=== PATIENT | male | born 1945 | race Caucasian/White ===

== ENCOUNTER 2019-01-05 17:51 | Inpatient (IN) | payer MEDICARE, MEDICAID ==
[~2019-01-05] VITALS: Ht 177.8 cm; Wt 72.6 kg
[2019-01-05 20:45] VITALS: BP 128/76
--- NOTE | 2019-01-05 21:00 | NUR ---
RECEIVE PT AT [address] [facility] WITH 2 EMT ADMIT TO MS FLOOR , PT POOR HISTORIAN, PT A/O X 3 WITH PERIOD OF FORGETFULNESS, DENIES CHEST PAIN, AFEBRILE. NO COMPLAIN OF PAIN, NON TOXIC APPEARANCE, SKIN INTACT. G-TUBE NOTED LLQ SITE CLEAN AND DRY AND CLAMPED PER PT HE STILL EATS AND DOESN'T KNOW WHAT HE'S FEEDING PER NEPHEW LUIS AND RECORD PT UNABLE TO EAT BY MOUTH A YEAR AGO DX UNCLEAR, G-TUBE WAS PLACED LAST 2017 AT [facility] PRES NEPHEW GIVES PUREED DIET AND SOME TROUGH HIS G-TUBE. NUTRITION AND ST CONSULT INITIATED, HOSPITALIST AWARE. SAFETY MEASURES IN PLACE PT KEPT CLEAN AND DRY. WILL CONT TO MTR. SEIZURE PRECAUTION.
--- NOTE | 2019-01-05 21:40 | NUR ---
PAGED HOSPITALIST FOR ADMITTING ORDERS AWAITING CALL BACK
--- NOTE | 2019-01-05 21:50 | NUR ---
CALLED BACK HOSPITALSIT PER MELITON OLVERA HE WILL SEE THE PT
--- NOTE | 2019-01-05 21:54 | NUR ---
SPOKE TO THE CHRISTIANOSIN LUIS PERSON TO NOTIFY MADE AWARE PT IS HERE AT [place], NO HOME MEDICATION LIST Addendum: 01/05/19 at 2157 by DAR GUTIERREZ RN PER LUIS AND PT DOESN'T KNOW WHAT FEEDING HE IS ON AND WHAT RATE BUT PT CAN ABLE TO DRINK AND EAT LUIS STATED GT TUBE WAS PLACED A YEAR AGO.
[2019-01-05 22:00] VITALS: BP 128/76
[2019-01-05] MEDS ORDERED: MIRT15TA7 PO (22:03)
[2019-01-05] MEDS ORDERED: DIAZ5TAB4 PO (22:03)
[2019-01-05] MEDS ORDERED: CEFTRIAXONE 1 G in IV D5W 50 ML IV SCH (23:00)
[2019-01-05] MEDS ORDERED: LORAZEPAM INJ 2 MG/ML VIAL IV PRN (23:00)
[2019-01-05] MEDS ORDERED: MAG HYDROX/AL HYDROX/SIMETH 30 ML UDC PO PRN (23:00)
[2019-01-05] MEDS ORDERED: ACETAMINOPHEN 325 MG TABLET PO PRN (23:00)
[2019-01-05] MEDS ORDERED: Z GUARD REMEDY 2 OZ OINT TP PRN (23:00)
[2019-01-05] MEDS ORDERED: MAGNESIUM HYDROXIDE 30 ML UDC PO PRN (23:00)
[2019-01-05] MEDS ORDERED: METRONIDAZOLE 500MG/ NS 100ML 100 ML IV ONE (23:08)
[2019-01-05] MEDS: IV NS 0.9% 1,000 ML IV PRN (23:15)
[2019-01-05] MEDS: METRONIDAZOLE 500MG/ NS 100ML 500 MG in PREMIX 1 EA IV SCH (23:16)
[2019-01-06] MEDS ORDERED: METRONIDAZOLE 500MG/ NS 100ML 100 ML IV ONE (05:14)
[2019-01-06] MEDS: METRONIDAZOLE 500MG/ NS 100ML 500 MG in PREMIX 1 EA IV SCH ×4 (05:16→23:21)
[2019-01-06 06:20] LABS: BASOPHILS % (AUTO) 0.4 % (0.0-2.0); HEMATOCRIT 36 % (39-51); LYMPHOCYTES # (AUTO) 1.2 /CMM (0.8-4.8); LYMPHOCYTES % (AUTO) 11.5 % (20.0-44.0); MEAN CORPUSCULAR HGB CONC 34 g/dl (31.0-36.0); MEAN CORPUSCULAR VOLUME 93 fL (80-96); MONOCYTES # (AUTO) 1.1 /CMM (0.1-1.30); MONOCYTES % (AUTO) 11.2 % (2.0-12.0); NEUTROPHILS # (AUTO) 7.8 /CMM (1.8-8.9); NEUTROPHILS % (AUTO) 76.9 % (43.0-81.0); PLATELET COUNT (AUTO) 242 /CMM (150-450); RED BLOOD CELL COUNT(AUTO) 3.84 MIL/uL (4.5-6.0); WHITE BLOOD COUNT (AUTO) 10.2 K/uL (4.3-11.0)
[2019-01-06 06:23] LABS: ALANINE AMINOTRANSFERASE 24 U/L (12-78); ALKALINE PHOSPHATASE 56 U/L (46-116); ASPARTATE AMINOTRANSFERASE 27 U/L (15-37); BILIRUBIN,TOTAL 0.6 mg/dL (0.2-1.0); CALCIUM, SERUM 8.6 mg/dL (8.5-10.1); CARBON DIOXIDE 25 mmol/L (21-32); CHLORIDE 108 mmol/L (98-107); CREATININE 0.8 mg/dL (0.6-1.3); GLUCOSE 101 mg/dL (74-106); POTASSIUM 3.5 mmol/L (3.5-5.1); SODIUM SERUM 141 mmol/L (136-145); TOTAL PROTEIN, SERUM 6.5 g/dL (6.4-8.2); UREA NITROGEN, BLOOD 8 mg/dL (7-18)
--- NOTE | 2019-01-06 06:25 | NUR ---
MS RN ASLEEP AND EASILY AWAKEN, NO NAUSEA AND VOMITING, RESPIRATION EVEN AND UNLABORED, STABLE AND NOT IN DISTRESS, AM CARE RENDERED, AFEBRILE. NEEDS ATTENDED AND ANTICIPATED, NO SEIZURE ACTIVITY. KEPT CLEAN AND DRY AND COMFORTABLE. NO EPISODE OF DIARRHEA THROUGHOUT THE SHIFT. FC INTACT DRAINING CLEAR YELLOW VIA GRAVITY. SAFETY MEASURES AT ALL TIMES. ENDORSE TO THE NEXT SHIFT.
[2019-01-06 06:36] LABS: CHOLESTEROL 139 mg/dL (<200); HDL CHOLESTEROL 55 mg/dL (40-60); LDL 78 mg/dL (0-99); THYROID STIMULATING HORMONE 0.248 uIU/mL (0.358-3.74); TRIGLYCERIDES 71 mg/dL (30-150)
--- NOTE | 2019-01-06 07:50 | NUR ---
MS RN OPENING NOTES RECEIVED PT IN BED, INTERMITTENTLY DOZING OFF. ON 2LPM O2 VIA NC, WITH NO ACUTE RESPIRATORY DISTRESS NOTED. PT DENIES ANY PAIN AT THIS MOMENT. PT ALSO DENIES ANY CONCERNS OR QUESTIONS AT THIS MOMENT. PIV TO R WRIST G20, FLUSHED WITH NS, INTACT AND OPERATIONAL. IVF NS AT 75 ML/HR TO LAC G16, INTACT AND FLUID INFUSING WELL. PT KEPT COMFORTABLE. PT'S BED IN LOWEST, LOCKED POSITION WITH SR X2. CALL LIGHT KEPT WITHIN REACH. WILL CONTINUE PLAN OF CARE.
[2019-01-06 08:00] VITALS: BP 123/77
[2019-01-06] MEDS: DIAZEPAM 5 MG TABLET PO SCH ×2 (08:49→17:27)
[2019-01-06] MEDS: CEFTRIAXONE 1 G in IV D5W 50 ML IV SCH (08:50)
[2019-01-06] MEDS: PANTOPRAZOLE 40 MG VIAL IV SCH (08:50)
--- NOTE | 2019-01-06 15:45 | NUR ---
RN NOTES MEDICAL SUPERVISOR PRESENT BEDSIDE, CURRENTLY DOING CXRAY FOR PT.
[2019-01-06 16:00] VITALS: BP 128/80
--- NOTE | 2019-01-06 16:03 | NUR ---
RN NOTES PT EVAL WAS DONE. PHYSICAL THERAPIST STATED PT NOT SAFETY TO WALK WITH ASSISTIVE DEVICE ALONE. MAY NEED GAIT BELT AND MAX ASSIST. WILL ENDORSE TO NEXT SHIFT NURSE.
[2019-01-06] MEDS: MIRTAZAPINE 15 MG TABLET PO SCH (17:27)
[2019-01-06] MEDS: IV NS 0.9% 1,000 ML IV PRN (17:35)
--- NOTE | 2019-01-06 17:47 | NUR ---
RN NOTES PT'S NEPHEW/LUIS PRESENT BEDSIDE. AWARE OF PT'S CONDITION. CANE WILL BE BROUGHT BY THEM TOMORROW. LUIS VERIFIED PT CAN WALK WITH A CANE BEFORE AND HAS GT FEEDING, BUT NOT ABLE TO PROVIDE DETAILED INFORMATION AND ALSO, PT CAN EAT BY MOUTH WITH PUREE FOOD. STILL AWAITING FOR ST/SWALLOW EVAL. WILL CONTINUE TO MONITOR.
--- NOTE | 2019-01-06 18:27 | NUR ---
MS RN CLOSING NOTES PT REMAINS IN BED, INTERMITTENTLY DOZING OFF. ON 2LPM O2 VIA NC, WITH NO ACUTE RESPIRATORY DISTRESS NOTED. PT DENIES ANY PAIN AT THIS MOMENT. PT HAS EPISODES OF SPITTING CLEAR SALIVA, BASIN PRESENT BEDSIDE. SPOKE TO MD MARTINEZ THIS MORNING AROUND 11AM, NO NEW ORDERS FOR NOW. CXRAY WAS DONE. PT DENIES FEELING NAUSEATED. PIV TO LAC G16, FLUSHED WITH NS, INTACT AND OPERATIONAL. IVF NS AT 75 ML/HR TO RIGHT WRIST G20, INTACT AND FLUID INFUSING WELL. FC IN PLACE INTACT AND WITH CLEAR YELLOWISH URINE OUTPUT OF 350ML. ALL NEEDS AD CARE PROVIDED. PT KEPT COMFORTABLE. PT'S BED IN LOWEST, LOCKED POSITION WITH SR X2. CALL LIGHT KEPT WITHIN REACH. WILL ENDORSE TO NIGHT NURSE FOR SILKE.
--- NOTE | 2019-01-06 19:30 | NUR ---
RN NOTES RECEIVED PT. AWAKE ON BED, A/OX2, CONFUSED, LEGALLY BLIND, G-TUBE CLAMPED, RIGHT HAND IV GOT INFILTRATED, SWOLLEN, OFF LOAD, F/C DRAINING TEA COLORED DRAIN, HE HAS ANOTHER LINE ON LEFT AC, CALL LIGHT WITHIN REACH, SIDERAILSUPX3, CONTINUE TO MONITOR
[2019-01-06 20:10] VITALS: BP 128/73
[2019-01-07] MEDS: METRONIDAZOLE 500MG/ NS 100ML 500 MG in PREMIX 1 EA IV SCH (05:47)
--- NOTE | 2019-01-07 06:49 | NUR ---
RN NOTES AWAKE,MORNING CARE RENDERED, DENIES PAIN ,NO SOB, SIDERAILSUPX2, PT. NEEDS ATTENDED
[2019-01-07 07:31] LABS: BASOPHILS # (AUTO) 0.1 /CMM (0.0-0.2); BASOPHILS % (AUTO) 0.7 % (0.0-2.0); EOSINOPHILS % (AUTO) 0.2 % (0.0-6.0); HEMATOCRIT 36 % (39-51); LYMPHOCYTES # (AUTO) 1.2 /CMM (0.8-4.8); LYMPHOCYTES % (AUTO) 12.2 % (20.0-44.0); MEAN CORPUSCULAR HGB CONC 33 g/dl (31.0-36.0); MEAN CORPUSCULAR VOLUME 92 fL (80-96); MONOCYTES # (AUTO) 1.1 /CMM (0.1-1.30); MONOCYTES % (AUTO) 11.1 % (2.0-12.0); NEUTROPHILS # (AUTO) 7.7 /CMM (1.8-8.9); NEUTROPHILS % (AUTO) 75.8 % (43.0-81.0); PLATELET COUNT (AUTO) 236 /CMM (150-450); RED BLOOD CELL COUNT(AUTO) 3.91 MIL/uL (4.5-6.0); WHITE BLOOD COUNT (AUTO) 10.2 K/uL (4.3-11.0)
[2019-01-07 07:40] LABS: CALCIUM, SERUM 8.6 mg/dL (8.5-10.1); CARBON DIOXIDE 24 mmol/L (21-32); CHLORIDE 106 mmol/L (98-107); CREATININE 0.9 mg/dL (0.6-1.3); GLUCOSE 107 mg/dL (74-106); MAGNESIUM 1.7 mg/dL (1.8-2.4); PHOSPHORUS 2.4 mg/dL (2.5-4.9); POTASSIUM 3.4 mmol/L (3.5-5.1); SODIUM SERUM 141 mmol/L (136-145); UREA NITROGEN, BLOOD 6 mg/dL (7-18)
[2019-01-07 08:00] VITALS: BP_SYST 140; BP_SYST 149; BP_DIAS 81
--- NOTE | 2019-01-07 08:00 | NUR ---
RN NOTES RECEIVED PATIENT IN THE BED A/O X3, ON O2-2L NC. PATIENT HAS NO ACUTE RESPIRATORY DISTRESS, PATIENT LEGALLY BLIND, PATIENT TOTAL CARE, ON G-TUBE INTACT, RESIDUAL AND PLACEMENT CHECKED. PATIENT HEAD OF BED KEEP ELEVATED FOR ASPIRATION PRECAUTION. PER PATIENT FAMILY PATIENT CAN EAT AND TOLERATE FOOD WELL BY MOUTH. DURING THE TIME OF FEEDING PATIENT STARTED TO VOMIT, STOP FEEDING. NOTIFIED Dr MATOS AND GET ORDER SE EVALUATION. PER SE PATIENT ASPIRATION PRECAUTION. PATIENT NPO NOW ,AND WILL START JAVITY 1/2 FEEDING TOLERATED. CALL LIGHT WITHIN TO REACH. SAFETY PRECAUTION MAINTAINED ALL THE TIME. CALL LIGHT WITHIN TO REACH. ASSIST PATIENT TURN AND REPOSTION Q 2 HR.
[2019-01-07] MEDS ORDERED: PHENAZOPYRIDINE HCL 200 MG TABLET PO PRN (10:30)
[2019-01-07] MEDS: CEFTRIAXONE 1 G in IV D5W 50 ML IV SCH (10:31)
[2019-01-07] MEDS: DIAZEPAM 5 MG TABLET PO SCH ×2 (10:31→16:53)
[2019-01-07] MEDS: PANTOPRAZOLE 40 MG VIAL IV SCH (10:31)
[2019-01-07] MEDS ORDERED: POTASSIUM CHLORIDE 20 MEQ TAB.PRT.SR PO SCH (11:00)
--- NOTE | 2019-01-07 12:00 | NUR ---
RN NOTES PATIENT DELUSIONAL AND HALLUCINATING, KEEP CALLING TENISHA NAME FOR HELP AND PRAYING HE IS GOING TO SEE TENISHA. SIDE RAILS UP, F/C DRAIN LIGHT YELLOW OUTPUT, PATIENT INCONTINENT, SCHEDULED MEDICATION ADMINISTERED, ASSIST TURN AND REPOSTION Q 2 HR. CONTINUED MONITORING. ALSO INFUSING MAGNESIUM 100 ML/HR LEFT AC AREA INTACT.
[2019-01-07] MEDS: Magnesium 1GM/D5W 100ML PREMIX 100 ML IV SCH ×2 (12:51→14:06)
[2019-01-07] MEDS ORDERED: POTASSIUM CHLORIDE 20 MEQ TAB.PRT.SR PO ONE (13:00)
[2019-01-07] MEDS: JEVITY 1.2 CAL 1,000 ML BOTTLE GT PRN (13:25)
[2019-01-07] MEDS: PROSOURCE / PROSTAT (PYXIS) 30 ML UDC GT SCH (13:26)
--- NOTE | 2019-01-07 13:30 | NUR ---
RN NOTES STARTED JEVITY 1.2 AT 30ML/HR AND WILL INCREASE GRADUALLY TO 60 ML/HR G-TUBE FEEDING AT THIS TIME. ALLS MEDICATION ADMINISTERED VIA G-TUBE. PATIENT TOLERATED WELL FEEDING. PATIENT STABEL, CALL LIGHT WITHIN TO REACH. CONTINUED MONITORING.
[2019-01-07 16:00] VITALS: BP 124/80
[2019-01-07] MEDS ORDERED: NEUTRA PHOS 1 POWD.PACKET NG ONE (16:00)
[2019-01-07] MEDS: MIRTAZAPINE 15 MG TABLET PO SCH (17:03)
[2019-01-07] MEDS: IV NS 0.9% 1,000 ML IV PRN (17:06)
[2019-01-07] MEDS: HYDROCODONE/APAP 5/325MG 1 EACH TABLET PO PRN (18:17)
--- NOTE | 2019-01-07 18:17 | NUR ---
RN NOTES ADMINISTERED NARCO 5/325 MG GT PRNVIT G-TUBE FOR GENERALIZED PAIN 03/27 PER PATIENT REQUEST, V/S STABLE BP-124/80, P-80, CONTINUED MONITORING.
--- NOTE | 2019-01-07 18:40 | NUR ---
RN NOTES MEDICATION WERE ADMINISTERED FOR PAIN EFFECTIVE, REPOSTION USING PILLOWS, G-TUBE INFUSING WELL, ALSO INFUSING NS AT 75 ML/ HR IN LEFT AC AREA INTACT. CALL LIGHT WITHIN TO REACH, SAFETY PRECAUTION MAINTAINED ALL THE TIME. ENDORSED ONCOMING NURSE FOR PLAN OF CARE.
--- NOTE | 2019-01-07 19:51 | NUR ---
RN MS OPENING NOTES RECEIVED PT IN BED, AWAKE ALERT ORIENTESX2, BREATHING EVEN AND UNLABORED ON O2 2L. NO COMPLAINT OF PAIN OR DISCOMFORT AT THE MOMENT. IV ACCESS ON THE LAC #18G WTH NS@75ML/HR. GTUBE IN PLACE WITH JEVITY @30ML/HR. NO RESIDUAL. BED IN LOWEST LOCKED POSITION, REPOSITIONED FOR COMFORT. CALL LIGHT WITHIN REACH AT ALL TIMES, WILL CONTINUE TO MONITOR FREQUENTLY
[2019-01-07 20:00] VITALS: BP 130/89
[2019-01-08] MEDS: HYDROCODONE/APAP 5/325MG 1 EACH TABLET PO PRN ×3 (00:27→19:54)
[2019-01-08] MEDS: IV NS 0.9% 1,000 ML IV PRN ×2 (05:43→17:23)
--- NOTE | 2019-01-08 06:15 | NUR ---
RN MS CLOSING NOTES PT REMAINS IN BED, AWAKE ALERT ORIENTESX2, BREATHING EVEN AND UNLABORED ON O2 2L. NO COMPLAINT OF PAIN OR DISCOMFORT AT THE MOMENT. IV ACCESS ON THE LAC #18G WTH NS@75ML/HR. GTUBE IN PLACE WITH JEVITY @50ML/HR. 5MLOF RESIDUAL. BED IN LOWEST LOCKED POSITION, REPOSITIONED FOR COMFORT. CALL LIGHT WITHIN REACH AT ALL TIMES, WILL ENDORSE TO DAY NURSE FOR SILKE
--- NOTE | 2019-01-08 07:30 | NUR ---
OPENING MEDSUR RN NOTE RECEIVED PT FROM NIGHT NURSE. PT IS RESTING IN BED WITH EYES CLOSED. PT IS IN 3L NASAL CANNULA. NO SOB. NO PAIN. CALL LIGHT IS IN PT HAND. BED LIGHT IN LOW POSITION.
[2019-01-08 07:37] LABS: BASOPHILS % (AUTO) 0.5 % (0.0-2.0); EOSINOPHILS % (AUTO) 0.6 % (0.0-6.0); HEMATOCRIT 34 % (39-51); HEMOGLOBIN 11.6 g/dL (13.5-17.5); LYMPHOCYTES % (AUTO) 10.2 % (20.0-44.0); MEAN CORPUSCULAR HGB CONC 34 g/dl (31.0-36.0); MEAN CORPUSCULAR VOLUME 91 fL (80-96); MONOCYTES # (AUTO) 1.2 /CMM (0.1-1.30); MONOCYTES % (AUTO) 12.2 % (2.0-12.0); NEUTROPHILS # (AUTO) 7.5 /CMM (1.8-8.9); NEUTROPHILS % (AUTO) 76.5 % (43.0-81.0); PLATELET COUNT (AUTO) 224 /CMM (150-450); RED BLOOD CELL COUNT(AUTO) 3.74 MIL/uL (4.5-6.0); WHITE BLOOD COUNT (AUTO) 9.7 K/uL (4.3-11.0)
[2019-01-08 08:00] VITALS: BP 148/93
[2019-01-08 08:02] LABS: CALCIUM, SERUM 8.3 mg/dL (8.5-10.1); CARBON DIOXIDE 25 mmol/L (21-32); CHLORIDE 107 mmol/L (98-107); CREATININE 0.8 mg/dL (0.6-1.3); GLUCOSE 102 mg/dL (74-106); MAGNESIUM 1.9 mg/dL (1.8-2.4); PHOSPHORUS 2.9 mg/dL (2.5-4.9); POTASSIUM 3.3 mmol/L (3.5-5.1); SODIUM SERUM 141 mmol/L (136-145); UREA NITROGEN, BLOOD 7 mg/dL (7-18)
[2019-01-08] MEDS: DIAZEPAM 5 MG TABLET PO SCH ×2 (09:33→17:02)
[2019-01-08] MEDS: PANTOPRAZOLE 40 MG VIAL IV SCH (09:33)
[2019-01-08] MEDS ORDERED: POTASSIUM CHLORIDE 20 MEQ TAB.PRT.SR PO SCH (10:00)
[2019-01-08] MEDS: ONDANSETRON HCL/PF 4 MG/2 ML VIAL IVP PRN (10:46)
--- NOTE | 2019-01-08 11:28 | NUR ---
ROGER RN NOTES PT WAS COMPLAINING OF PAIN AT 1026 AM. PT STATES "I HAVE PAIN IN MY UPPER HEAD AND LOWER BACK". PAIN MEDICATION HAS BEEN GIVEN. MANAGE PAIN LEVEL BY MEDICATION AND REPOSITIONING. PT IS FEELING RELIEVED AT 1126.
--- NOTE | 2019-01-08 11:32 | NUR ---
RN MEDR NOTES DR. NUNEZ CAME TO SEE PT. PATIENT VOMIT [address] NUNEZ TOLD TO STOP THE TUBE FEEDING. NAUSEA MEDICATION HAS BEEN GIVEN. PT STATES "I FEEL BETTER" AND IS WATCHING TV. CALL LIGHT IS WITHIN REACH. BED IN LOW POSITION.
[2019-01-08] MEDS: PROSOURCE / PROSTAT (PYXIS) 30 ML UDC GT SCH (14:55)
--- NOTE | 2019-01-08 15:36 | NUR ---
MEDSURRaudel RN NOTES PT IS RESTING IN BED WITH EYES CLOSED. PT IS IN 2L NASAL CANNULA. NO SOB. IV FLUID IS RUNNING 125 ML/HR PER MD ORDER.. CALL LIGHT IS WITHIN REACH. BED AT LOW POSITION.
--- NOTE | 2019-01-08 15:46 | NUR ---
RN MEDSURG NOTES SEIZURE PRECAUTION IS MAINTAINED.
[2019-01-08 16:00] VITALS: BP 138/90
[2019-01-08] MEDS: MIRTAZAPINE 15 MG TABLET PO SCH (17:02)
--- NOTE | 2019-01-08 18:44 | NUR ---
RN ROGER NOTES PT IS RESTING IN BED. MEDICATIONS HAS BEEN GIVEN. NO EPISODE OF NAUSEA AND VOMITING. NO PAIN. PT IS STILL NPO UNTIL FOLLOW UP IN THE MORNING. NO SOB. FLUID IS RUNNING. SPOKE WITH PATIENT'S NEPHEW REGARDING THE CONDITION AND PLAN OF CARE. PT'S NEPHEW VERBALIZE UNDERSTANDING. SEIZURE PRECAUTION IS MAINTAINED. CALL LIGHT IS WITHIN REACH AND BED AT LOW POSITION.
--- NOTE | 2019-01-08 19:00 | NUR ---
RN MS OPENING NOTES RECEIVED PATIENT IN BED AWAKE ALERT AND ORIENTED X2, ON 2 L VIA NC RESPIRATIONS EVEN AND UNLABORED WITH EQUAL RISE AND FALL OF CHEST, AT THIS TIME DENIES ANY PAIN OR DISCOMFORT, HEAD ELEVATED FOR ASPIRATION PRECAUTIONS, FEEDING HELD AT THIS TIME PER MD ORDER. WOLFE CATHETER INTACT AND DRAINING WELL, LEFT AC #18 G INTACT AND PATENT, NO REDNESS NO INFILTRATION PRESENT, IVF RUNNING ORDERED, ORIENTED TO STAFF AND CALL LIGHT AND KEPT WITHIN REACH, LOW BED AND LOCKED, ALL NEEDS ATTENDED AT THIS TIME, WILL CONTINUE TO MONITOR AND ATTEND TO NEEDS PATIENT REPOSITIONED.
--- NOTE | 2019-01-08 19:54 | NUR ---
RN MS NOTES PATIENT COMPLAINT OF HEADACHE 04/27 ASKING FOR PAIN MEDICATION NORCO OFFERED, PATIENT AGREED. VS WNL 130/83,82,20,97.9,99% 2 L VIA NC NORCO PRN GIVEN WILL CONTINUE TO MONITOR FOR EFFECTIVESS, GTUBE FLUSHED, NO RESIDUALS PRESENT.
[2019-01-08 20:00] VITALS: BP 130/83
[2019-01-09] MEDS: IV NS 0.9% 1,000 ML IV PRN ×3 (01:28→20:40)
--- NOTE | 2019-01-09 07:15 | NUR ---
RN MS CLOSING NOTES PATIENT IN BED AWAKE ALERT AND ORIENTED X2, ON 2 L VIA NC RESPIRATIONS EVEN AND UNLABORED WITH EQUAL RISE AND FALL OF CHEST, AT THIS TIME DENIES ANY PAIN OR DISCOMFORT, HEAD ELEVATED FOR ASPIRATION PRECAUTIONS, FEEDING HELD AT THIS TIME PER MD ORDER. WOLFE CATHETER INTACT AND DRAINING WELL, LEFT AC #18 G INTACT AND PATENT, NO REDNESS NO INFILTRATION PRESENT, IVF RUNNING ORDERED, CALL LIGHT KEPT WITHIN REACH, LOW BED AND LOCKED, ALL NEEDS ATTENDED AT THIS TIME, WILL CONTINUE TO MONITOR AND ENDORSE TO NEXT SHIFT PATIENT REPOSITIONED, HEELS OFFLOADED NO CHANGE THROUGHOUT NIGHT.
[2019-01-09 07:17] LABS: BASOPHILS % (AUTO) 0.5 % (0.0-2.0); HEMATOCRIT 35 % (39-51); HEMOGLOBIN 11.7 g/dL (13.5-17.5); LYMPHOCYTES # (AUTO) 0.9 /CMM (0.8-4.8); LYMPHOCYTES % (AUTO) 9.1 % (20.0-44.0); MEAN CORPUSCULAR HGB CONC 34 g/dl (31.0-36.0); MEAN CORPUSCULAR VOLUME 93 fL (80-96); MONOCYTES % (AUTO) 10.7 % (2.0-12.0); NEUTROPHILS # (AUTO) 7.7 /CMM (1.8-8.9); NEUTROPHILS % (AUTO) 78.7 % (43.0-81.0); PLATELET COUNT (AUTO) 215 /CMM (150-450); RED BLOOD CELL COUNT(AUTO) 3.71 MIL/uL (4.5-6.0); WHITE BLOOD COUNT (AUTO) 9.7 K/uL (4.3-11.0)
--- NOTE | 2019-01-09 07:30 | NUR ---
OPENING RN MEDSURG NOTES RECEIVED PT IS AWAKE AND ALERTX2. PT RESPIRATION IS EQUAL, CLEAR AND UNLABORED. NO SOB. PT STILL IN 2L NC. WOLFE CATHERER IS PATENT, INTACT, AND DRAINING. DENIES ANY PAIN OR DISCOMFORT. PT STILL NPO AT THIS TIME. WILL CONTINUE TO MONITOR AND ASSIST WITH ALL PT NEEDS. CALL LIGHT IS WITHIN REACH AND BED AT LOW POSITION.
[2019-01-09 07:36] LABS: CALCIUM, SERUM 8.4 mg/dL (8.5-10.1); CARBON DIOXIDE 26 mmol/L (21-32); CHLORIDE 107 mmol/L (98-107); CREATININE 0.8 mg/dL (0.6-1.3); GLUCOSE 86 mg/dL (74-106); MAGNESIUM 1.7 mg/dL (1.8-2.4); PHOSPHORUS 5.1 mg/dL (2.5-4.9); POTASSIUM 3.5 mmol/L (3.5-5.1); SODIUM SERUM 142 mmol/L (136-145); UREA NITROGEN, BLOOD 6 mg/dL (7-18)
[2019-01-09 08:00] VITALS: BP 143/90
[2019-01-09] MEDS: DIAZEPAM 5 MG TABLET PO SCH ×2 (09:11→17:49)
[2019-01-09] MEDS: PROSOURCE / PROSTAT (PYXIS) 30 ML UDC GT SCH (09:12)
[2019-01-09] MEDS: PANTOPRAZOLE 40 MG VIAL IV SCH (09:12)
--- NOTE | 2019-01-09 09:50 | NUR ---
RN MEDSURG NOTES SPOKE WITH DR. NUNEZ ABOUT PT CRITICAL LAB. DR. NUNEZ ORDERED MAGNESIUM TO IMPROVE PT MAGNESIUM LEVEL. DR. NUNEZ MENTIONED SHE WILL TALK TO DR. MICHEL ABOUT PT'S TUBE FEEDING. PT'S RESIDUAL FROM THE TUBE FEEDING WAS 15 ML.
--- NOTE | 2019-01-09 10:00 | NUR ---
ROGER RN NOTES PT VOMITED [address] NUNEZ AND THE CHARGE NURSE HAS BEEN INFORMED AND AWARE OF THE PT'S CONDITION. PRN MEDICATION (ZOFRAN) HAS BEEN GIVEN. ASSITED THE PT. REPOSITION THE PATIENT. BED AT LOW POSITION. CALL LIGHT IS WITHIN REACH. WILL CONTINUE TO MONITOR PT'S CONDITION.
[2019-01-09] MEDS: Magnesium 1GM/D5W 100ML PREMIX 100 ML IV SCH ×2 (10:02→13:40)
[2019-01-09] MEDS: ONDANSETRON HCL/PF 4 MG/2 ML VIAL IVP PRN (10:17)
--- NOTE | 2019-01-09 11:06 | NUR ---
RN MEDSUR NOTES DR. NUNEZ DISCUSSED WITH THE PT'S NEPHEW LUIS ABOUT PT'S CONDITION. PT'S NEPHEW UNDERSTAND ABOUT PT'S CONDITION AND PLAN OF CARE. PT IS RELAX IN BED. NAUSEA MEDICATION HAS BEEN GIVEN. NO MORE VOMIT AND NAUSEA AT THIS TIME. BED AT LOW POSITION AND CALL LIGHT IS WITHIN REACH.
--- NOTE | 2019-01-09 14:36 | NUR ---
MEDSURG RN NOTES PT IS RELAXING IN BED LISTENING TO THE TV. IV SITE IS PATENT AND STILL INFUSING WELL. NO PAIN. NO NAUSEA AND VOMITING AT THIS TIME. RESPIRATION IS EQUAL, CLEAR AND UNLABORED. SEIZURE PRECAUTION IS MAINTAINED. CALL LIGHT IS WITHIN REACH AND BED AT LOW POSITION. WILL CONTINUE TO MONITOR AND ASSIST WITH NEEDS.
[2019-01-09 16:00] VITALS: BP 135/88
[2019-01-09] MEDS: MIRTAZAPINE 15 MG TABLET PO SCH (17:49)
--- NOTE | 2019-01-09 18:30 | NUR ---
ROGER RN CLOSING NOTES PT IS RESTING IN BED LISTENING TO TV. PT IS IN 2L NC. RESPIRATION IS EQUAL, CLEAR AND UNLABORED. IV IS INTACT, PATENT AND INFUSING WELL. WOLFE CATHERER INTACT AND PATENT. NO PAIN PRESENT. NO MORE VOMITS. ALL MEDICATIONS HAS BEEN GIVEN. PT DENIES PAIN OR DISCOMFORT AT THIS TIME. CALL LIGHT WITHIN REACH. BED AT LOW POSITION.
[2019-01-09 20:00] VITALS: BP 149/79
--- NOTE | 2019-01-09 20:00 | NUR ---
MS/RN OPENING NOTES PATIENT IN BED, ALERT, ORIENTED X3, ABLE TO VERBALIZE NEEDS, REPORTED PAIN OF 8/10, HAD MEDICATION FOR PAIN PREVIOUS SHIFT , WILL MONITOR. RESPIRATIONS EVEN AND UNLABORED, CALL LIGHTS WITHIN REACH, BED LOCKED CALL LIGHTS WITHIN REACH, PATIENT LEGALLY BLIND AND REQUIRE ASSISTANCE. BED LOCKED CALL LIGHTS WITHIN REACH.
--- NOTE | 2019-01-10 06:43 | NUR ---
327-1 MS/RN NOTES PATIENT ABLE TO SLEEP DURING THE NIGHT, RESPIRATIONS EVEN AND UNLABORED, SKIN WARM TO TOUCH, MONITORED FOR NAUSEAM VOMITING AND DIRRHEA, ON NPOM GTUBE CLAMP PER GI, AWAITING FOR GI COMSULT. WILL MONITOR. BED LOCKED, CALL LIGHTS WITHIN REACH, WILL MONITOR.
--- NOTE | 2019-01-10 06:44 | NUR ---
MS/RN NOTES PATIENT ABLE TO SLEEP INTERMITENTL, RESPIRATIONS EVEN AND UNLABORED WITH CONGESTION, RT WAS CALLED FOR BREATHING TX, MONITORD FOR ANY CHANGES. BED LOCKED.CALL LIGHTS WITHIN REACH. WILL MONITOR.
--- NOTE | 2019-01-10 07:54 | NUR ---
MS RN OPENING NOTES RECEIVED PT RESTING IN BED, AWAKE. A/O X2-3. PT ON O2 AT 2LPM VIA NC, WITH NO ACUTE RESPIRATORY DISTRESS NOTED. PT DENIES PAIN. PT DENIES ANY QUESTIONS OR CONCERNS AT THIS MOMENT. IVF NS AT 125ML/HR TO RFA G22, INTACT AND INFUSING WELL. PIV LAC G18 SL, FLUSHED WITH NS, INTACT AND OPERATIONAL. FC IN PLACE WITH YELLOWISH URINE IN THE BAG, OUTPUT OF 100ML. PT KEPT COMFORTABLE. PT'S BED KEPT IN LOWEST, LOCKED, POSITION WITH SRX2. CALL LIGHT WITHIN REACH. WILL CONTINUE PLAN OF CARE.
[2019-01-10 08:00] VITALS: BP 147/81
[2019-01-10] MEDS: DIAZEPAM 5 MG TABLET PO SCH ×2 (08:17→17:22)
[2019-01-10] MEDS: PANTOPRAZOLE 40 MG VIAL IV SCH (08:17)
[2019-01-10] MEDS: IV NS 0.9% 1,000 ML IV PRN ×2 (08:18→18:01)
[2019-01-10 08:20] LABS: BASOPHILS % (AUTO) 0.3 % (0.0-2.0); HEMATOCRIT 35 % (39-51); HEMOGLOBIN 11.8 g/dL (13.5-17.5); LYMPHOCYTES # (AUTO) 0.9 /CMM (0.8-4.8); MEAN CORPUSCULAR HGB CONC 34 g/dl (31.0-36.0); MEAN CORPUSCULAR VOLUME 93 fL (80-96); MONOCYTES % (AUTO) 10.2 % (2.0-12.0); NEUTROPHILS # (AUTO) 7.8 /CMM (1.8-8.9); NEUTROPHILS % (AUTO) 79.5 % (43.0-81.0); PLATELET COUNT (AUTO) 227 /CMM (150-450); WHITE BLOOD COUNT (AUTO) 9.8 K/uL (4.3-11.0)
[2019-01-10 08:31] LABS: CALCIUM, SERUM 8.4 mg/dL (8.5-10.1); CARBON DIOXIDE 23 mmol/L (21-32); CHLORIDE 104 mmol/L (98-107); CREATININE 0.9 mg/dL (0.6-1.3); GLUCOSE 69 mg/dL (74-106); MAGNESIUM 1.5 mg/dL (1.8-2.4); PHOSPHORUS 2.2 mg/dL (2.5-4.9); POTASSIUM 3.4 mmol/L (3.5-5.1); SODIUM SERUM 137 mmol/L (136-145); UREA NITROGEN, BLOOD 6 mg/dL (7-18)
[2019-01-10] MEDS: PROSOURCE / PROSTAT (PYXIS) 30 ML UDC GT SCH (08:49)
--- NOTE | 2019-01-10 09:10 | NUR ---
RN NOTES PT SEEN BY SILVERER DT. PT HAS NO CONCERNS VERBALIZED TO SILVERER. NO DIZZINESS, NO NAUSEA AND VOMITING WELL. SILVERER DT STATED HE WILL F/U AGAIN WITH DR MICHEL REGARDING PLAN FOR GT. PT TO CONTINUE NPO. MEDS THROUGH GT. WILL CONTINUE TO MONITOR.
[2019-01-10] MEDS ORDERED: POTASSIUM CHLORIDE 20 MEQ POWDER PACKET GT ONE (11:00)
[2019-01-10] MEDS ORDERED: NEUTRA PHOS 1 POWD.PACKET GT ONE (11:00)
[2019-01-10] MEDS: Magnesium 1GM/D5W 100ML PREMIX 100 ML IV SCH ×2 (11:09→12:13)
--- NOTE | 2019-01-10 13:30 | NUR ---
RN NOTES SEEN BY DR MICHEL. PLAN FOR EGD SUE. NPO POST MIDNIGHT ORDERED. CONSENT OBTAINED VIA PHONE FROM LUIS, WITNESSED BY BRYCE STEVEN. WILL ENDORSE TO INCOMING NURSE.
[2019-01-10 16:00] VITALS: BP 132/99
[2019-01-10] MEDS: MIRTAZAPINE 15 MG TABLET PO SCH (17:22)
--- NOTE | 2019-01-10 18:53 | NUR ---
MS RN CLOSING NOTES PT REMAINS RESTING IN BED, AWAKE. A/O X2-3. LEGALLY BLIND. PT ON O2 AT 2LPM VIA NC, WITH NO ACUTE RESPIRATORY DISTRESS NOTED. PT DENIES PAIN. IVF NS AT 125ML/HR TO LFA G18 SL, INTACT AND INFUSING WELL. PIV RFA G22 , FLUSHED WITH NS, INTACT AND OPERATIONAL. FC IN PLACE WITH YELLOWISH-KARIME URINE IN THE BAG, OUTPUT OF 850 ML. ALL NEEDS AND CARE PROVIDED. NPO POST MIDNIGHT IN PREPARATION FOR EGD BY DR MICHEL. PT KEPT COMFORTABLE. PT'S BED KEPT IN LOWEST, LOCKED, POSITION WITH SRX2. CALL LIGHT WITHIN REACH. WILL ENDORSE TO INCOMING NIGHT NURSE FOR SILKE.
--- NOTE | 2019-01-10 19:00 | NUR ---
RN MS OPENING NOTES RECEIVED PATIENT IN BED AWAKE ALERT AND ORIENTED X 2, RESPIRATIONS EVEN AND UNLABORED WITH EQUAL RISE AND FALL OF CHEST, DENIES ANY PAIN OR DISCOMFORT AT THIS TIME, WOLFE CATHETER INTACT AND PATENT, DRAINING WELL, URINE YELLOW/KARIME, WITH PROPER ALIGNMENT, GTUBE IN PLACE, NO RESIDUALS, PATIENT REMAINS NPO PER MD ORDER AT THIS TIME, SCHEDULED FOR EGD IN AM 01/11/19.IV SITE TO LEFT FA #18 AND RIGHT FA #22, NO REDNESS, NO INFILTRATION , IVF RUNNING ORDERED. SAFETY PRECAUTIONS IN PLACE,LOW BED AND LOCKED, ALL NEEDS ATTENDED AT THIS TIME, WILL CONTINUE TO MONITOR AND ATTEND TO NEEDS, REPOSITIONED.
[2019-01-10 20:00] VITALS: BP 144/91
[2019-01-11] MEDS: IV NS 0.9% 1,000 ML IV PRN ×2 (03:20→18:18)
--- NOTE | 2019-01-11 05:51 | NUR ---
RN MS NOTES TELEPHONICALLY SPOKE TO LUIS HODGSON RESPONSIBLE LIBERTARIAN FOR CONSENT FOR EGD, BLOOD TRANSFUSION AND ANESTHESIA, AND AGREED TO CONSENT, VERIFIED AND WITNESSED WITH ANOTHER RN.
[2019-01-11 06:05] LABS: BASOPHILS # (AUTO) 0.1 /CMM (0.0-0.2); BASOPHILS % (AUTO) 0.6 % (0.0-2.0); HEMATOCRIT 34 % (39-51); HEMOGLOBIN 11.5 g/dL (13.5-17.5); LYMPHOCYTES # (AUTO) 1.2 /CMM (0.8-4.8); LYMPHOCYTES % (AUTO) 11.3 % (20.0-44.0); MEAN CORPUSCULAR HGB CONC 34 g/dl (31.0-36.0); MEAN CORPUSCULAR VOLUME 93 fL (80-96); MONOCYTES # (AUTO) 1.2 /CMM (0.1-1.30); MONOCYTES % (AUTO) 10.6 % (2.0-12.0); NEUTROPHILS # (AUTO) 8.2 /CMM (1.8-8.9); NEUTROPHILS % (AUTO) 75.5 % (43.0-81.0); PLATELET COUNT (AUTO) 217 /CMM (150-450); RED BLOOD CELL COUNT(AUTO) 3.65 MIL/uL (4.5-6.0); WHITE BLOOD COUNT (AUTO) 10.8 K/uL (4.3-11.0)
--- NOTE | 2019-01-11 06:43 | NUR ---
RN MS CLOSING NOTES PATIENT IN BED AWAKE ALERT AND ORIENTED X 2, RESPIRATIONS EVEN AND UNLABORED WITH EQUAL RISE AND FALL OF CHEST, DENIES ANY PAIN OR DISCOMFORT AT THIS TIME, WOLFE CATHETER INTACT AND PATENT, DRAINING WELL, URINE YELLOW/KARIME, WITH PROPER ALIGNMENT, GTUBE IN PLACE, NO RESIDUALS, PATIENT REMAINS NPO PER MD ORDER AT THIS TIME, SCHEDULED FOR EGD IN AM 01/11/19.IV SITE TO LEFT FA #22(CLARIFICATION SIZE) AND RIGHT FA #24 (CLARIFICATION), NO REDNESS, NO INFILTRATION , IVF RUNNING ORDERED. SAFETY PRECAUTIONS IN PLACE,LOW BED AND LOCKED, ALL NEEDS ATTENDED AT THIS TIME, WILL CONTINUE TO MONITOR AND ATTEND TO NEEDS, REPOSITIONED SACRAL, BODY ASSESSMENT DONE HEELS CHECKED INTACT AND FLOATED, ALL CONSENTS IN PLACE AND SIGNED, WILL ENDORSE TO NEXT SHIFT. Addendum: 01/11/19 at 0703 by LINDA HAAS RN ENDORSE PATIENT SCHEDULED FOR EGD AT 0730 AND F/UP WITH LAB RESULTS PENDING AND MAG REPLACEMENT
[2019-01-11 06:45] LABS: CALCIUM, SERUM 8.8 mg/dL (8.5-10.1); CARBON DIOXIDE 24 mmol/L (21-32); CHLORIDE 105 mmol/L (98-107); CREATININE 0.7 mg/dL (0.6-1.3); GLUCOSE 77 mg/dL (74-106); MAGNESIUM 1.6 mg/dL (1.8-2.4); PHOSPHORUS 2.5 mg/dL (2.5-4.9); POTASSIUM 3.7 mmol/L (3.5-5.1); SODIUM SERUM 140 mmol/L (136-145); UREA NITROGEN, BLOOD 7 mg/dL (7-18)
--- NOTE | 2019-01-11 07:11 | NUR ---
RN MS NOTES PATIENT LEFT FOR EGD IN STABLE CONDITION.
--- NOTE | 2019-01-11 07:15 | NUR ---
RN NOTES PT LEFT THE UNIT TO HAVE EGD PROCEDURE AT 0712.
--- NOTE | 2019-01-11 07:31 | NUR ---
MS RN OPENING NOTES RECEIVED PT RESTING IN BED, EASILY AROUSED. A/O X2-3. PT ON O2 AT 2LPM VIA NC, WITH NO ACUTE RESPIRATORY DISTRESS NOTED. PT DENIES PAIN. PT DENIES ANY QUESTIONS OR CONCERNS AT THIS MOMENT. IVF NS AT 125ML/HR TO RFA G22, INTACT AND INFUSING WELL. PIV LAC G18 SL, FLUSHED WITH NS, INTACT AND OPERATIONAL. FC IN PLACE WITH YELLOWISH-KARIME URINE IN THE BAG. PT KEPT COMFORTABLE MADE AWARE ABOUT EGD PROCEDURE THIS MORNING. PT'S BED KEPT IN LOWEST, LOCKED, POSITION WITH SRX2. CALL LIGHT WITHIN REACH. WILL CONTINUE PLAN OF CARE. Addendum: 01/11/19 at 0734 by SHAUN MENA RN OPENING NOTE ROUNDS MADE AT 0710. PT LEFT THE UNIT AT 0712 FOR EGD PROCEDURE. PT AWARE.
[2019-01-11 08:20] VITALS: BP 130/75
--- NOTE | 2019-01-11 08:22 | NUR ---
RN NOTES PT CAME BACK FROM EGD PROCEDURE WITH DR MICHEL. CONTINUE SAME IV HYDRATION WITH NS AT 75ML/HR AND OKAY TO HAVE CLEAR LIQUID DIET. CLINICAL PRODUCT MANAGER MADE AWARE, PT NEEDS ASSIST WITH MEALS. WILL CONTINUE TO MONITOR.
[2019-01-11] MEDS: DIAZEPAM 5 MG TABLET PO SCH ×2 (09:02→17:16)
[2019-01-11] MEDS: PANTOPRAZOLE 40 MG VIAL IV SCH (09:02)
[2019-01-11] MEDS: PROSOURCE / PROSTAT (PYXIS) 30 ML UDC GT SCH (09:04)
--- NOTE | 2019-01-11 09:17 | NUR ---
RN NOTES PT JUST FINISHED CLEAR LIQUID BREAKFAST AROUND 0905. CECY/PO WHO ASSISTED PT SAID HE/PT HAD SOUP AND SOME JUICES. PT NOW NOTED SPITTING OUT BUBBLES OF SALIVA. PT DENIES OF FEELING NAUSEATED. CN MADE AWARE WELL. WILL NOTIFY HOSPITALIST JEFFREY.
--- NOTE | 2019-01-11 09:31 | NUR ---
RN NOTES BUSINESS ADMINISTRATION TEACHER DT MADE AWARE OF PT SPITTING OUT A LOT OF SALIVA. BUSINESS ADMINISTRATION TEACHER AWARE OF EGD RESULT OF GE STRICTURE AND DR MICHEL HAD TO DILATE IT TO 18MM. MADE AWARE OF MG THS MORNING OF 1.6 WELL. NO NEW ORDERS NOTED FOR NOW, TO CONTINUE MONITOR FOR PT. BUSINESS ADMINISTRATION TEACHER DT STATED HE WILL REPLACE ELECTROLYTES LATER.
[2019-01-11] MEDS: Magnesium 1GM/D5W 100ML PREMIX 100 ML IV SCH ×2 (10:25→11:27)
[2019-01-11] MEDS ORDERED: Magnesium 1GM/D5W 100ML PREMIX 100 ML IV SCH (11:30)
[2019-01-11 16:00] VITALS: BP 135/91
[2019-01-11] MEDS: MIRTAZAPINE 15 MG TABLET PO SCH (17:16)
--- NOTE | 2019-01-11 18:50 | NUR ---
MS RN CLOSING NOTES PT RESTING IN BED, EASILY AROUSED. A/O X2-3. PT ON O2 AT 2LPM VIA NC, WITH NO ACUTE RESPIRATORY DISTRESS NOTED. PT DENIES PAIN. IVF NS AT 75ML/HR TO LFA G22, INTACT AND INFUSING WELL. PIV RFA G24 SL, FLUSHED WITH NS, INTACT AND OPERATIONAL. FC IN PLACE WITH CLEAR YELLOW URINE IN THE BAG, URINE OUTPUT OF 1300ML. ALL NEEDS AND CARE PROVIDED. PT KEPT COMFORTABLE; HOB KEPT ELEVATED. EPISODES OF SPITTING SALIVA STILL PRESENT AND FUNERAL ASSISTANT DT AWARE, STATED TO CONTINUE MONITOR FOR NOW. CN/MICHELINE AWARE WELL. PT'S BED KEPT IN LOWEST, LOCKED, POSITION WITH SRX2. CALL LIGHT WITHIN REACH. WILL ENDORSE TO INCOMING NIGHT NURSE FOR SILKE.
--- NOTE | 2019-01-11 19:39 | NUR ---
MS RN OPENING NOTES: RECEIVED PT 2LPM VIA NC AND IS TOLERATING WELL. NO SOB NOTED. NO S/S OF DISTRESS. PT APPEARS TO BE LEGALLY BLIND. PT IS A/OX2. PT HAS G TUBE. NO RESIDUAL NOTED AND HAS BEEN FLUSHED. NO GTUBE FEEDING ORDERED AT THIS TIME. PT HAS WOLFE CATH AND IS ATTACHED TO DRAINAGE BAG WITH URINE DRAINING. BED ALARM ACTIVATED. IV BEING INFUSED WITH IV NS AT 75ML/HR. BED KEPT IN LOW, LOCKED POSITION, AND SIDE RAILS X 2UP. BED ALARM ACTIVATED. WILL CONTINUE TO MONITOR PT.
[2019-01-11 20:00] VITALS: BP 116/83
[2019-01-12] MEDS: IV NS 0.9% 1,000 ML IV PRN ×2 (05:50→22:46)
--- NOTE | 2019-01-12 06:24 | NUR ---
MS RN CLOSING NOTES: ALL NEEDS WERE ATTENDED AND ANTICIPATED FOR. PT KEPT CLEAN, DRY, AND COMFORTABLE. PT ON 2LPM VIA NC AND IS TOLERATING WELL. PT HAS IV AND IS BEING INFUSED WITH IV NS AT 75ML/HR. PT HAS G TUBE AND HAS BEEN FLUSHED AND CLAMPED AT THIS TIME. PT HAS WOLFE CATH AND IS ATTACHED TO DRAINAGE BAG WITH URINE DRAINING. OUTPUT WAS 1200ML. PT ORALLY SUCTIONED PRN. NO N/V THIS SHIFT. SIDE RAILS PADDED FOR SEIZURE PRECAUTIONS. PT TURNED AND REPOSITIONED Q2HRS. BED KEPT IN LOW, LOCKED POSITION, AND SIDE RAILS X 2UP. BED ALARM ACTIVATED. WILL ENDORSE TO AM NURSE FOR SILKE.
[2019-01-12] MEDS: PANTOPRAZOLE 40 MG VIAL IV SCH (06:36)
[2019-01-12 07:08] LABS: BASOPHILS # (AUTO) 0.1 /CMM (0.0-0.2); BASOPHILS % (AUTO) 0.8 % (0.0-2.0); EOSINOPHILS % (AUTO) 2.8 % (0.0-6.0); HEMATOCRIT 35 % (39-51); HEMOGLOBIN 11.5 g/dL (13.5-17.5); LYMPHOCYTES % (AUTO) 11.2 % (20.0-44.0); MEAN CORPUSCULAR HGB CONC 33 g/dl (31.0-36.0); MEAN CORPUSCULAR VOLUME 93 fL (80-96); MONOCYTES # (AUTO) 0.8 /CMM (0.1-1.30); MONOCYTES % (AUTO) 9.1 % (2.0-12.0); NEUTROPHILS # (AUTO) 6.7 /CMM (1.8-8.9); NEUTROPHILS % (AUTO) 76.1 % (43.0-81.0); PLATELET COUNT (AUTO) 250 /CMM (150-450); RED BLOOD CELL COUNT(AUTO) 3.73 MIL/uL (4.5-6.0); WHITE BLOOD COUNT (AUTO) 8.8 K/uL (4.3-11.0)
[2019-01-12 07:15] LABS: CALCIUM, SERUM 8.7 mg/dL (8.5-10.1); CARBON DIOXIDE 27 mmol/L (21-32); CHLORIDE 106 mmol/L (98-107); CREATININE 0.8 mg/dL (0.6-1.3); GLUCOSE 84 mg/dL (74-106); MAGNESIUM 1.6 mg/dL (1.8-2.4); POTASSIUM 3.7 mmol/L (3.5-5.1); SODIUM SERUM 142 mmol/L (136-145); UREA NITROGEN, BLOOD 7 mg/dL (7-18)
--- NOTE | 2019-01-12 07:30 | NUR ---
MS/RN OPENING NOTE THE PATIENT ALERT AND ORIENTED X2. RECEIVING OXYGEN AT 2L/MIN VIA NASAL CANNULA AND DENIES SOB. RESPIRATION REGULAR AND UNLABORED. DENIES PAIN. ABDOMEN SOFT AND NON-DISTENDED. DENIES NAUSEA OR VOMITING AT THIS TIME. GT PRESENT AND NO RESIDUAL NOTED. LFA G 22 PATENT AND NORMAL SALINE INFUSING AT 75ML/HR AND NO S/S INFILTRATION NOTED. RFA G 24 PATENT AND SALINE LOCKED. BED LOW AND LOCKED. SIDE RAILS UP X3. SIDE RAILS PADDED. CALL LIGHT WITHIN REACH. WILL CONTINUE TO MONITOR.
[2019-01-12 08:00] VITALS: BP 149/88
--- NOTE | 2019-01-12 08:20 | NUR ---
MS/RN NOTE CLEAR LIQUID BREAKFAST ABLE TO TOLERATE WITH NO VOMITING.
[2019-01-12] MEDS: HYDROCODONE/APAP 5/325MG 1 EACH TABLET PO PRN ×3 (08:34→22:46)
[2019-01-12] MEDS: DIAZEPAM 5 MG TABLET PO SCH ×2 (08:35→16:39)
[2019-01-12] MEDS: PROSOURCE / PROSTAT (PYXIS) 30 ML UDC GT SCH (08:42)
[2019-01-12] MEDS: Magnesium 1GM/D5W 100ML PREMIX 100 ML IV SCH ×2 (09:41→11:04)
--- NOTE | 2019-01-12 12:30 | NUR ---
MS/RN NOTE PATIENT ATE FEW SPOON OF CLEAR LIQUID LUNCH AND TOLERATED IT. NO VOMITING.
--- NOTE | 2019-01-12 13:55 | NUR ---
MS/RN NOTE THE PATIENT HAD CLEAR LIQUID BUT AFTER 5 MIN HE VOMITED ALL. HEAD OF BED KEPT UP TO PREVENT ASPIRATION AND REMAINS NEXT TO THE PATIENT FOR CLOSE MONITORING. WILL INFORM DR MICHEL.
--- NOTE | 2019-01-12 14:00 | NUR ---
MS/RN NOTE LEFT MESSAGE TO DR MICHEL DUE TO PATIENT NOT TOLERATING CLEAR LIQUID DIET AND VOMITING INGESTED CLEAR LIQUIDS. HOD KEPT UP AT ALL TIMES TO PREVENT ASPIRATION AND CLOSE MONITORING DONE AT ALL TIMES.
--- NOTE | 2019-01-12 14:27 | NUR ---
MS/RN NOTE PER ASSET MANAGEMENT ANALYST TRIPP MAY GIVE MEDICATIONS VIA GT. NOTED AND CARRIED OUT.
--- NOTE | 2019-01-12 14:39 | NUR ---
MS/RN NOTE DR MICHEL REPLIED AND GAVE AN ORDER TO STOP CLEAR LIQUID DIET AND START GT FEEDING JEVITY 1.2 START AT 30 ML/HR ADVANCE TOLERATED AT 60ML/HR GOAL RATE. THE ORDER IS READ BACK, VERIFIED. NOTED AND CARRIED OUT. WILL START THE FEEDING SOON THE KITCHEN DELIVERS JEVITY. THE PATIENT IS MADE AWARE.
[2019-01-12 16:00] VITALS: BP 126/80
[2019-01-12] MEDS: JEVITY 1.2 CAL 1,000 ML BOTTLE GT PRN (16:50)
--- NOTE | 2019-01-12 17:08 | NUR ---
MS/RN NOTE NPO PER DR MICHEL. NOTED AND CARRIED OUT.
[2019-01-12] MEDS: MIRTAZAPINE 15 MG TABLET PO SCH (18:16)
--- NOTE | 2019-01-12 18:16 | NUR ---
MS/RN CLOSING NOTE THE PATIENT ALERT AND ORIENTED X2. ABLE TO MAKE NEEDS KNOWN VERBALLY. PATIENT IS LEGALLY BLIND. RECEIVING OXYGEN AT 2L/MIN VIA NASAL CANNULA AND SATURATION IS AT 97%. DENIES SOB. RESPIRATION REGULAR AND UNLABORED. DENIES PAIN. THE PATIENT IN NO APPARENT DISTRESS. GT FEEDING TOLERATES WELL WITH 2ML OF RESIDUAL. ABDOMEN SOFT AND NON-DISTENDED. DENIES NAUSEA OR VOMITING. LFA G 22 PATENT AND NORMAL SALINE INFUSING AT 75ML/HR AND NO S/S INFILTRATION NOTED. RFA G 24 PATENT AND SALINE LOCKED. BED LOW AND LOCKED. SIDE RAILS UP X3. SIDE RAILS ARE PADDED. CALL LIGHT WITHIN REACH. WILL ENDORSE TO DIRECTOR [employer].
--- NOTE | 2019-01-12 19:20 | NUR ---
MS/RN NOTES RECEIVED PT. LYING IN BED. PT. IS AWAKE, ALERT AND ORIENTED X2. BREATHING EVEN AND UNLABORED ON 2LPM O2 VIA NC. NO SOB, RESPIRATORY DISTRESS OR COMPLAINTS OF PAIN NOTED AT THIS TIME. NO COMPLAINTS OF NAUSEA OR VOMITING NOTED AT THIS TIME. PT. IS NPO. PT. WITH LEFT FOREARM 22 GAUGE PERIPHERAL IV PRESENT, PATENT AND INTACT ADMINISTERING TO PT. NS @ 75 ML/HR. PT. WITH RIGHT FOREARM 24 GAUGE IV SALINE LOCK PRESENT, PATENT AND INTACT. PT. WITH G-TUBE PRESENT, PATENT AND INTACT ADMINISTERING TO PT. JEVITY 1.2 @ 30 ML/HR. PT. WITH WOLFE CATHETER PRESENT, PATENT AND INTACT. BED LOCKED AND IN LOWEST POSITION, SIDE RAILS UP X3, BED ALARM ON, CALL LIGHT WITHIN REACH, WILL CONTINUE TO MONITOR.
[2019-01-12 20:00] VITALS: BP 121/77
--- NOTE | 2019-01-13 06:19 | NUR ---
MS/RN NOTES PT. IS LYING IN BED RESTING. BREATHING EVEN AND UNLABORED ON 2LPM O2 VIA NC. NO SOB, RESPIRATORY DISTRESS OR COMPLAINTS OF PAIN NOTED AT THIS TIME. PT. REMAINS NPO. PT. WITH LEFT FOREARM 22 GAUGE PERIPHERAL IV PRESENT, PATENT AND INTACT ADMINISTERING TO PT. NS @ 75 ML/HR. PT. WITH RIGHT FOREARM 24 GAUGE IV SALINE LOCK PRESENT, PATENT AND INTACT. PT. WITH G-TUBE PRESENT, PATENT AND INTACT ADMINISTERING TO PT. JEVITY 1.2 @ 40 ML/HR. PT. TOLERATING TUBE FEEDING, PT. NOTED WITH 30 ML RESIDUAL. PT. WITH WOLFE CATHETER PRESENT, PATENT AND INTACT. ALL PT. NEEDS MET. PT. OFFLOADED, TURNED AND REPOSITIONED Q2H AND NEEDED. BED LOCKED AND IN LOWEST POSITION, SIDE RAILS UP X3, BED ALARM ON, CALL LIGHT WITHIN REACH, WILL ENDORSE TO DAYSHIFT NURSE FOR CONTINUITY OF CARE.
--- NOTE | 2019-01-13 07:15 | NUR ---
MS/RN OPENING NOTE THE PATIENT ALERT AND ORIENTED X2. IN ROOM AIR AND DENIES SOB. RESPIRATION REGULAR AND UNLABORED. DENIES PAIN. THE PATIENT IN NO APPARENT DISTRESS. GT FEEDING JEVITY 1.2 INFUSING AT 40ML/HR. ABDOMEN SOFT AND NON-DISTENDED. NOTED TO HAVE 5 ML RESIDUAL. DENIES NAUSEA OR VOMITING. WOLFE CATH DRAINING CLEAR AND YELLOW COLOR URINE. LFA G 22 PATENT AND NORMAL SALINE INFUSING AT 75L/HR WITH NO S/S INFILTRATION. RIGHT HAND G 20 PATENT AND SALINE LOCKED. HOB UP TO PREVENT ASPIRATION. BED LOW AND LOCKED. SIDE RAILS UP X3 AND PADDED. CALL LIGHT WITHIN REACH. WILL CONTINUE TO MONITOR.
[2019-01-13 07:21] LABS: BASOPHILS % (AUTO) 0.4 % (0.0-2.0); CALCIUM, SERUM 8.5 mg/dL (8.5-10.1); CARBON DIOXIDE 29 mmol/L (21-32); CHLORIDE 105 mmol/L (98-107); CREATININE 0.7 mg/dL (0.6-1.3); EOSINOPHILS % (AUTO) 2.1 % (0.0-6.0); GLUCOSE 118 mg/dL (74-106); HEMATOCRIT 32 % (39-51); HEMOGLOBIN 10.6 g/dL (13.5-17.5); LYMPHOCYTES # (AUTO) 0.9 /CMM (0.8-4.8); LYMPHOCYTES % (AUTO) 7.7 % (20.0-44.0); MAGNESIUM 1.8 mg/dL (1.8-2.4); MEAN CORPUSCULAR HGB CONC 33 g/dl (31.0-36.0); MEAN CORPUSCULAR VOLUME 92 fL (80-96); MONOCYTES % (AUTO) 8.7 % (2.0-12.0); NEUTROPHILS # (AUTO) 9.8 /CMM (1.8-8.9); NEUTROPHILS % (AUTO) 81.1 % (43.0-81.0); PLATELET COUNT (AUTO) 257 /CMM (150-450); POTASSIUM 3.3 mmol/L (3.5-5.1); RED BLOOD CELL COUNT(AUTO) 3.43 MIL/uL (4.5-6.0); SODIUM SERUM 142 mmol/L (136-145); UREA NITROGEN, BLOOD 6 mg/dL (7-18); WHITE BLOOD COUNT (AUTO) 12.1 K/uL (4.3-11.0)
[2019-01-13 08:00] VITALS: BP 120/81
--- NOTE | 2019-01-13 08:00 | NUR ---
MS/RN NOTE JEVITY 1.2 GT FEEDING RATE INCREASED FROM 40ML/HR TO 50 ML/HR. WILL CONTINUE TO MONITOR.
--- NOTE | 2019-01-13 08:15 | NUR ---
MS/RN NOTE TEMP AT 0800 WAS 99.2. THE PATIENT`S ROOM WAS VERY WARM. ADJUSTED THE ROOM TEMP AND AT 0815 THE PATIENT`S TEMP NOTED TO BE 98.5. THE PATIENT DENIES ANY CHILLS.
[2019-01-13] MEDS: DIAZEPAM 5 MG TABLET PO SCH (08:34)
[2019-01-13] MEDS: PROSOURCE / PROSTAT (PYXIS) 30 ML UDC GT SCH (08:34)
[2019-01-13] MEDS: PANTOPRAZOLE 40 MG VIAL IV SCH (08:34)
--- NOTE | 2019-01-13 08:35 | NUR ---
MS/RN NOTE GT FEEDING JEVITY 1.2 INFUSING AT 50 ML/HR AND RESIDUAL IS 5 ML. AM MEDICATIONS GIVEN PER ORDER. ABDOMEN SOFT AND NON-DISTENDED. DENIES NAUSEA OR VOMITING.
--- NOTE | 2019-01-13 10:10 | NUR ---
MS/RN NOTE GT FEEDING RESIDUAL IS AT 20 ML. INCREASED THE FEEDING TO 60 ML/HR AND WILL CONTINUE TO MONITOR.
[2019-01-13] MEDS: POTASSIUM CL. PREMIX PERIPHER. 50 ML IV SCH ×3 (10:50→12:12)
--- NOTE | 2019-01-13 12:49 | NUR ---
MS/RN NOTE THE SECOND BAG OF POTASSIUM CHLORIDE 10 MEQ IV IS SCANNED BUT NON-ADMINISTERED, WAISTED DUE TO PATIENT COMPLAINING OF EXCESSIVE BURNING SENSATION WHEN SECOND BAG IS STARTED. DESPITE CHANGING IV SITE THE PATIENT STILL WAS COMPLAINING AND REFUSING THE MEDICATION ADMINISTRATION. THE SECOND BAG OF POTASSIUM IS NOT ADMINISTERED, INSTEAD NEW ORDER OF POTASSIUM CHLORIDE 10 MEQ IS OBTAINED FROM MELITON ALMAGUER TO ADMINISTER VIA GT. THE NEW ORDER IS IN POWDER FOR AND OK TO ADMINISTER VIA GT. THE PATIENT AGREED FOR GT ADMINISTRATION OF POTASSIUM. THE ORDER IS READ BACK, VERIFIED. NOTED AND CARRIED OUT. PHARMACY IS MADE AWARE.
[2019-01-13] MEDS ORDERED: POTASSIUM CHLORIDE 20 MEQ POWDER PACKET GT ONE (13:00)
--- NOTE | 2019-01-13 15:00 | NUR ---
MS/RN NOTE THE RESIDUAL IS 30 ML WITH JEVITY 1.2 INFUSING AT 60ML/HR. ABDOMEN SOFT AND NON-DISTENDED. PATIENT DENIES NAUSEA OR VOMITING.
--- NOTE | 2019-01-13 15:40 | NUR ---
MS/RN NOTE THE PATIENT ALERT AND ORIENTED X2. IN ROOM AIR AND SATURATION IS AT 96%. DENIES SOB. DENIES PAIN. ABDOMEN SOFT AND NON-DISTENDED. DISCHARGE EDUCATION PROVIDED TO THE PATIENT AND RESPONSIBLE REPUBLICAN AND THEY VERBALIZED UNDERSTANDING. PATIENT IS GETTING PICKED UP BY HIS NEPHEW IN A PRIVATE CAR. PATIENT LEAVING THE HOSPITAL IN STABLE CONDITION.
== END 2019-01-13 16:00 | disposition home health service (06) | DRG 100 ==
LOC: MED 20:27
PROVIDERS: ADMIT Nurse Practitioner Acute Care; ATTEND Nurse Practitioner Acute Care
PROC: 0DB98ZX Excision of Duodenum, Via Natural or Artificial Opening Endoscopic, Diagnostic (ICD-10-PCS; principal; 2019-01-11)
PROC: 0D748ZZ Dilation of Esophagogastric Junction, Via Natural or Artificial Opening Endoscopic (ICD-10-PCS; 2019-01-11)
DX: R56.9 Unspecified convulsions (principal); N17.0 Acute kidney failure with tubular necrosis; E87.2 Acidosis; J98.11 Atelectasis; F41.9 Anxiety disorder, unspecified; F17.210 Nicotine dependence, cigarettes, uncomplicated; Z93.1 Gastrostomy status; D72.829 Elevated white blood cell count, unspecified; H54.7 Unspecified visual loss; F12.90 Cannabis use, unspecified, uncomplicated; R19.7 Diarrhea, unspecified; K20.9 Esophagitis, unspecified; E87.6 Hypokalemia; R11.2 Nausea with vomiting, unspecified; E83.42 Hypomagnesemia; E83.39 Other disorders of phosphorus metabolism; R13.10 Dysphagia, unspecified; Z91.14 Patient's other noncompliance with medication regimen
CPT/HCPCS: 36415; 71046; 74018; 80048-TC; 80053-TC; 80061-TC; 82962-TC; 83735-TC; 84100-TC; 84436-TC; 84443-TC; 85025-TC; 86850-TC; 87040-TC; 87081-TC; 87086-TC; 88305-TC; 92611-TC; 95819-TC; 97530-TC; A4216; C9113; G0378; J0696; J2060; J2405; J2704; J3475; J3480; J3490; J7030; J7060